=== PATIENT | female | born 1990 | race Caucasian/White ===

== ENCOUNTER 2017-09-11 16:28 | Outpatient (CLI) | payer OTHER ==
--- NOTE | 2017-09-11 19:05 | Cat Scan Report ---
FINAL REPORT EXAM: CT ABDOMEN W CON HISTORY: ACUTE APPENDICITIS WITH LOCALIZED peritonitis/R UPPER QUAD PAIN TECHNIQUE: Standard enhanced CT of the abdomen. 5 minutes delayed images were also obtained through the kidneys. Coronal and sagittal reconstruction was also performed. Contrast: 100 mL Omnipaque 300 given IV. Oral contrast given PRIORS: None. FINDINGS: Within the abdomen, the liver, spleen, pancreas, gallbladder, adrenal glands, and kidneys are unremarkable. No evidence for retroperitoneal lymphadenopathy is seen. The bowel loops have normal caliber. No soft tissue mass, fluid collection, inflammatory change, or free air is seen within the abdomen. The appendix is normal in size measuring 6-7 mm in diameter with no surrounding inflammation or localized free. The appendix dips into the right pelvis off the edge of the exam. Cecum and terminal ileum are also normal. Images through the upper abdomen include the lung bases which are expanded and clear. Bony structures show no focal abnormalities and are intact. IMPRESSION: No acute intra-abdominal process noted. The appendix appears normal without surrounding inflammation or localized free air.
== END 2017-09-11 16:29 | disposition home or self-care (01) ==
LOC: CT 16:28
PROVIDERS: ATTEND Internal Medicine
DX: R10.31 Right lower quadrant pain (principal); R10.33 Periumbilical pain; R10.11 Right upper quadrant pain
CPT/HCPCS: 74160; Q9967